=== PATIENT | male | born 1975 | race Caucasian/White ===

== ENCOUNTER 2019-08-14 17:32 | Emergency (ER) | payer BC ==
[~2019-08-14] VITALS: Ht 175.3 cm; Wt 134.7 kg
[2019-08-14 17:44] VITALS: Ht 175.3 cm; Wt 134.7 kg
[2019-08-14 18:41] LABS: BASOPHIL % 0.4 % (0-2); PLATELET COUNT 244 x10^3mcL (130-400)
[2019-08-14 18:43] LABS: RED CELL DISTRIBUTION WIDTH 16.9 % (11.5-14.5)
[2019-08-14 18:51] LABS: CALCIUM 9.4 mg/dL (8.5-10.1); CARBON DIOXIDE 25.7 mmol/L (21-32); CREATININE SERUM 2.5 mg/dL (0.7-1.3); POTASSIUM SERUM 3.5 mmol/L (3.5-5.1)
[2019-08-14 18:55] LABS: ALBUMIN 3.6 g/dL (3.4-5.0); BILIRUBIN TOTAL 0.39 mg/dL (0.20-1.00); TOTAL PROTEIN, SERUM 7.5 g/dL (6.4-8.2)
[2019-08-14 21:51] VITALS: BP 131/66
== END 2019-08-14 21:51 | disposition short-term general hospital (02) ==
LOC: ED 17:32
PROVIDERS: Emergency Medicine
DX: I61.9 Nontraumatic intracerebral hemorrhage, unspecified (principal); N28.9 Disorder of kidney and ureter, unspecified; I10 Essential (primary) hypertension
CPT/HCPCS: J3490; Q0092